=== PATIENT | female | born 1970 | race Two or more races ===

== ENCOUNTER 2017-11-08 09:43 | Day surgery (SDC) | payer SELFPAY ==
[2017-11-08] MEDS ORDERED: BUPIVACAINE 0.5% 30 ML SDV ONE (09:46)
[2017-11-08] MEDS ORDERED: LIDOCAINE 1% 2 ML INJ ID PRN (10:12)
[2017-11-08] MEDS ORDERED: LR 1,000 ML IV ONE (10:12)
--- NOTE | 2017-11-08 10:38 | PDHPUP ---
History & Physical Update H&P update statement: This history and physical update is based on an assessment of the patient which was completed after admission or registration (within 24 hours), but prior to the surgery/procedure. H&P update: no change in patient's condition since H&P completed
--- NOTE | 2017-11-08 10:40 | PDANEPAE ---
ANE Past Medical History - Cardiovascular History Hx Hypertension: No Hx Arrhythmias: No Hx Chest Pain: No Hx Coronary Artery / Peripheral Vascular Disease: No Hx CHF / Valvular Disease: No Hx Palpitations: No - Pulmonary History Hx COPD: No Hx Asthma/Reactive Airway Disease: No Hx Recent Upper Respiratory Infection: No Hx Oxygen in Use at Home: No Hx Sleep Apnea: No Sleep Apnea Screening Result - Last Documented: Negative - Neurologic History Hx Cerebrovascular Accident: No Hx Seizures: No Hx Dementia: No - Endocrine History Hx Diabetes: No - Renal History Hx Renal Disorders: No - Liver History Hx Hepatic Disorders: No - Neurological & Psychiatric Hx Hx Neurological and Psychiatric Disorders: Yes 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 - Cancer History Hx Cancer: No - Congenital Disorder History Hx Congenital Disorders: No - GI History Hx Gastrointestinal Disorders: No - Other Health History Other Health History: none - Chronic Pain History Chronic Pain: No - Surgical History Prior Surgeries: none ANE Review of Systems Review of Systems: - Exercise capacity METS (RN): 4 METS ANE Patient History - Allergies Allergies/Adverse Reactions: No Known Allergies Allergy (Verified 11/05/17 15:55) - Home Medications Home Medications: NK [No Known Home Meds] 11/08/17 [Last Taken Unknown] - NPO status NPO Since - Liquids (Date): 11/07/17 NPO Since - Liquids (Time): 20:30 NPO Since - Solids (Date): 11/07/17 NPO Since - Solids (Time): 17:00 - Smoking Hx Smoking Status: Never smoked - Family Anes Hx Family Hx Anesthesia Complications: none ANE Labs/Vital Signs - Vital Signs Blood Pressure: 108/74 Heart Rate: 64 Respiratory Rate: 15 O2 Sat (%): 95 Height: 144.78 cm Weight: 68.039 kg ANE Physical Exam - Airway Mallampati Score: Class 2 - ASA Status ASA Status: I ANE Anesthesia Plan Anesthesia Plan: GA w LMA
[2017-11-08] MEDS ORDERED: fentaNYL 100 MCG/2 ML INJ ONE (10:42)
[2017-11-08] MEDS ORDERED: MIDAZOLAM 2 MG/2 ML VIAL ONE (10:42)
[2017-11-08] MEDS ORDERED: METOCLOPRAMIDE 10 MG/2 ML VIAL ONE (10:43)
[2017-11-08] MEDS ORDERED: ONDANSETRON 4 MG/2 ML VIAL ONE (10:43)
[2017-11-08] MEDS ORDERED: PROPOFOL 200 MG/20 ML VIAL ONE (10:43)
[2017-11-08] MEDS ORDERED: NALOXONE HCL 0.4 MG/ML INJ IVP PRN (11:44)
[2017-11-08] MEDS ORDERED: fentaNYL 100 MCG/2 ML INJ IVP PRN (11:44)
[2017-11-08] MEDS ORDERED: PROMETHAZINE HCL 25 MG/ML INJ IVP PRN (11:44)
--- NOTE | 2017-11-08 11:46 | POSTANESTH ---
Post Anesthetic Evaluation Cardiovascular Status: Normal, Stable Respiratory Status: Normal, Stable Level of Consciousness/Mental Status: Can Participate in Eval Pain Control: Adequate, Prn Tx Ordered Nausea/Vomiting Control: Adequate, Prn Tx Ordered Complications Possibly Related to Anesthesia: None Noted
[2017-11-08 11:51] VITALS: PULSE 78
--- NOTE | 2017-11-08 11:54 | POSTOPPROG ---
Post Op Note Date of Operation: 11/08/17 Surgeon: Kennedy Sandoval Anesthesia: LMA Pre-op Diagnosis: mass right chest wall Post-op Diagnosis: same Indication: same Procedure: excise 15 cm mass sub fascial right chest wall1 Findings: same Inf/Abcess present in the surg proc area at time of surgery?: No
--- NOTE | 2017-11-08 12:13 | GOP ---
[f rep st] OPERATIVE REPORT DATE OF OPERATION: SURGEON: Kennedy Sandoval MD PREOPERATIVE DIAGNOSIS: Mass, right lateral chest wall. POSTOPERATIVE DIAGNOSIS: Mass, right lateral chest wall. PROCEDURE PERFORMED: Excise 15 cm subfascial mass, clinically lipoma, right chest wall. FINDINGS: INDICATIONS: The patient has expanding mass, 15 cm in size, right chest wall, likely to be a lipoma. DESCRIPTION OF PROCEDURE: Patient positioned right side up with an axillary roll, buttocks taped on the table to prevent rotation. The area scrubbed with ChloraPrep, draped in the usual sterile fashio n. 0.5% Marcaine was infiltrated over the proposed incision line and then a skin line made in the sk in folds. A large lipoma was found of which a portion was subfascial and had to be freed up from the chest wall with cautery. The mass was completely excised, however. The large cavity left by the re moval of the mass was closed with interrupted 3-0 Vicryl, partitioning this to prevent any large sero ma formation. After all the subcu stitches were placed, the skin was closed with running subcuticula r 4-0 V-Loc and Dermabond. Patient tolerated the procedure well. /[id number]/MODL
[2017-11-08 12:37] VITALS: RESP 16
[2017-11-08 13:43] VITALS: BP 142/77; O2SAT 96
[2017-11-08 16:19] VITALS: TEMP 98.2
== END 2017-11-08 13:28 | disposition home or self-care (01) ==
LOC: FSGY 09:43
PROVIDERS: ATTEND Surgery
PROC: 0JB60ZZ Excision of Chest Subcutaneous Tissue and Fascia, Open Approach (ICD-10-PCS; principal; 2017-11-08 11:15)
DX: D17.1 Benign lipomatous neoplasm of skin and subcutaneous tissue of trunk (principal)
CPT/HCPCS: J2250; J2405; J2704; J2765; J3010